=== PATIENT | female | born 1930 | race Caucasian/White ===

== ENCOUNTER → 2016-10-03 | Outpatient (CLI) | payer MEDICARE ==
[2016-10-03 10:07] LABS: HEMATOCRIT 39.7 % (35.0-46.0); MEAN CELL VOLUME 89.9 FL (80.0-100.0); MEAN CORPUSCULAR HGB CONC 33.3 % (32.0-36.0); PLATELET COUNT 243 TH/MM3 (150-450); RED BLOOD COUNT 4.42 MIL/MM3 (4.00-5.30); RED CELL DISTRIBUTION WIDTH 13.8 % (11.6-17.2); REVIEW FLAG FINAL; WHITE BLOOD COUNT 4.8 TH/MM3 (4.0-11.0)
[2016-10-03 10:14] LABS: ALT (GPT) 15 U/L (10-53); ANION GAP 4 MEQ/L (5-15); AST (GOT) 14 U/L (15-37); BICARBONATE 30.9 MEQ/L (21.0-32.0); BLOOD UREA NITROGEN 20 MG/DL (7-18); CHLORIDE 107 MEQ/L (98-107); GLOMERULAR FILTRATION RATE 59 ML/MIN (>89); GLUCOSE,FASTING 116 MG/DL (74-99); POTASSIUM 4.8 MEQ/L (3.5-5.1); SODIUM (NA) 142 MEQ/L (136-145)
[2016-10-03 10:23] LABS: ALKALINE PHOSPHATASE 53 U/L (45-117); FREE T4 1.08 NG/DL (0.76-1.46); HDL CHOLESTEROL 62.1 MG/DL (40.0-60.0); LDL CHOLESTEROL 92 MG/DL (0-99); LDL CHOLESTEROL DIRECT 97 MG/DL (0-99); TOTAL BILIRUBIN ADULT 0.7 MG/DL (0.2-1.0)
[2016-10-03 16:10] LABS: HEMOGLOBIN A1a 1.1 %; HEMOGLOBIN A1b 1.9 %; HEMOGLOBIN Ao 84.1 %; HEMOGLOBIN P3 4.1 %
== END ==
LOC: PLAB 07:06
PROVIDERS: ATTEND Family Medicine
DX: E11.9 Type 2 diabetes mellitus without complications (principal); E78.2 Mixed hyperlipidemia; I10 Essential (primary) hypertension; E03.8 Other specified hypothyroidism
CPT/HCPCS: 36415; 80053; 80061; 83036; 83721; 84439; 84443; 85027

== ENCOUNTER → 2016-12-25 | Outpatient (CLI) | payer MEDICARE ==
[~2016-12-25] MED LIST: FAMOTIDINE 20 MG/2 ML VIAL ONE
[2016-12-25 09:39] LABS: HEMATOCRIT 40.3 % (35.0-46.0); MEAN CELL VOLUME 90.1 FL (80.0-100.0); MEAN CORPUSCULAR HEMOGLOBIN 30.4 PG (27.0-34.0); MEAN CORPUSCULAR HGB CONC 33.7 % (32.0-36.0); PLATELET COUNT 255 TH/MM3 (150-450); RED BLOOD COUNT 4.47 MIL/MM3 (4.00-5.30); RED CELL DISTRIBUTION WIDTH 13.6 % (11.6-17.2); REVIEW FLAG FINAL; WHITE BLOOD COUNT 4.6 TH/MM3 (4.0-11.0)
[2016-12-25 10:09] LABS: ALKALINE PHOSPHATASE 55 U/L (45-117); ALT (GPT) 16 U/L (10-53); ANION GAP 3 MEQ/L (5-15); AST (GOT) 11 U/L (15-37); BICARBONATE 34.4 MEQ/L (21.0-32.0); BLOOD UREA NITROGEN 17 MG/DL (7-18); CHLORIDE 104 MEQ/L (98-107); FREE T4 1.16 NG/DL (0.76-1.46); GLOMERULAR FILTRATION RATE 58 ML/MIN (>89); GLUCOSE,FASTING 104 MG/DL (74-99); HDL CHOLESTEROL 58.6 MG/DL (40.0-60.0); LDL CHOLESTEROL 91 MG/DL (0-99); LDL CHOLESTEROL DIRECT 97 MG/DL (0-99); POTASSIUM 4.7 MEQ/L (3.5-5.1); SODIUM (NA) 141 MEQ/L (136-145); TOTAL BILIRUBIN ADULT 0.8 MG/DL (0.2-1.0)
[2016-12-25 10:53] LABS: HEMOGLOBIN A1b 1.9 %; HEMOGLOBIN Ao 83.9 %; HEMOGLOBIN LA1C 2.1 %; HEMOGLOBIN P3 5.5 %
== END ==
LOC: PLAB 07:09
PROVIDERS: ATTEND Family Medicine
DX: E11.9 Type 2 diabetes mellitus without complications (principal); E78.2 Mixed hyperlipidemia; I10 Essential (primary) hypertension; E03.8 Other specified hypothyroidism
CPT/HCPCS: 36415; 80053; 80061; 83036; 83721; 84439; 84443; 85027

== ENCOUNTER → 2017-03-27 | Outpatient (CLI) | payer MEDICARE ==
[2017-03-27 12:24] LABS: HEMATOCRIT 41.1 % (35.0-46.0); MEAN CELL VOLUME 90.4 FL (80.0-100.0); MEAN CORPUSCULAR HEMOGLOBIN 30.4 PG (27.0-34.0); MEAN CORPUSCULAR HGB CONC 33.6 % (32.0-36.0); PLATELET COUNT 248 TH/MM3 (150-450); RED BLOOD COUNT 4.55 MIL/MM3 (4.00-5.30); RED CELL DISTRIBUTION WIDTH 13.5 % (11.6-17.2); REVIEW FLAG FINAL
[2017-03-27 12:49] LABS: MICRO ALBUMIN RANDOM URINE RAW 24.8 MG/L (0.0-30.0)
[2017-03-27 13:03] LABS: AST (GOT) 11 U/L (15-37); BICARBONATE 30.4 MEQ/L (21.0-32.0); BLOOD UREA NITROGEN 17 MG/DL (7-18); GLOMERULAR FILTRATION RATE 58 ML/MIN (>89); GLUCOSE,FASTING 104 MG/DL (74-99)
[2017-03-27 13:38] LABS: ALKALINE PHOSPHATASE 51 U/L (45-117); ALT (GPT) 11 U/L (10-53); ANION GAP 6 MEQ/L (5-15); CHLORIDE 106 MEQ/L (98-107); FREE T4 1.27 NG/DL (0.76-1.46); HDL CHOLESTEROL 56.8 MG/DL (40.0-60.0); LDL CHOLESTEROL 90 MG/DL (0-99); LDL CHOLESTEROL DIRECT 93 MG/DL (0-99); POTASSIUM 3.9 MEQ/L (3.5-5.1); SODIUM (NA) 142 MEQ/L (136-145); TOTAL BILIRUBIN ADULT 0.9 MG/DL (0.2-1.0)
[2017-03-27 16:43] LABS: HEMOGLOBIN A1a 1.1 %; HEMOGLOBIN Ao 83.7 %; HEMOGLOBIN P3 4.2 %
== END ==
LOC: PLAB 08:07
PROVIDERS: ATTEND Family Medicine
DX: I10 Essential (primary) hypertension (principal); E11.9 Type 2 diabetes mellitus without complications; E78.2 Mixed hyperlipidemia; E03.8 Other specified hypothyroidism
CPT/HCPCS: 36415; 80053; 80061; 82043; 83036; 83721; 84439; 84443; 85027

== ENCOUNTER 2017-06-29 08:45 | Emergency (ER) | payer MEDICARE ==
[~2017-06-29] VITALS: Ht 175.3 cm; Wt 86.0 kg
[2017-06-29 09:00] VITALS: BP 183/82; PULSE 69; RESP 16; TEMP 97.8; O2SAT 97
[2017-06-29] MEDS ORDERED: METO50TA PO (09:04)
[2017-06-29] MEDS ORDERED: ESTR0.5T PO (09:04)
[2017-06-29] MEDS ORDERED: HYDR12.56 PO (09:04)
[2017-06-29] MEDS ORDERED: LEVO125T4 PO (09:04)
[2017-06-29] MEDS ORDERED: ROSU1TAB4 PO (09:04)
--- NOTE | 2017-06-29 09:23 | PD ---
HPI Chief Complaint: Cardiac Complaint Time Seen by Provider: 09:07 Travel History International Travel<30 days: No Contact w/Intl Traveler<30days: No Traveled to known affect area: No History of Present Illness HPI This patient reports that around midnight she woke up and had a sensation of fluttering in her chest. She did not have presyncopal symptoms. She walked to the bathroom and came back and went to bed. This morning she had another spell of fluttering. Resolved in a few minutes. She feels fine now. Symptoms at this time are mild. Were moderate during the night. He did not have any chest pain or pressure or tightness or heaviness. She's had this in the past but not any time recent. No history of cardiac arrhythmia or any cardiac problems definitively diagnosed. No alleviating factors. No exacerbating factors. PFSH Past Medical History Diabetes: Yes (NO NEDS) Patient Takes Glucophage: No Hypertension: Yes Thyroid Disease: Yes Influenza Vaccination: Yes ?: Not Past Surgical History Appendectomy: Yes Hysterectomy: Yes Social History Alcohol Use: Yes (OCCAS) Tobacco Use: No Substance Use: No Allergies-Medications (Allergen,Severity, Reaction): Coded Allergies: erythromycin base (Verified Allergy, Mild, Nausea/Vomiting, 06/29/17) Reported Meds & Prescriptions Reported Meds & Active Scripts Active Reported Estradiol 0.5 Mg Tab 0.5 Mg PO EVERY OTHER DAY Rosuvastatin (Rosuvastatin Calcium) 5 Mg Tab 5 Mg PO - Metoprolol Tartrate 50 Mg Tab 50 Mg PO BID Levothyroxine (Levothyroxine Sodium) 125 Mcg Tab 125 Mcg PO DAILY Hydrochlorothiazide 12.5 Mg Tab 12.5 Mg PO DAILY Review of Systems General / Constitutional: No: Fever Eyes: No: Visual changes HENT: No: Headaches Cardiovascular: Positive: Palpitations, No: Chest Pain or Discomfort Respiratory: No: Shortness of Breath Gastrointestinal: No: Abdominal Pain Genitourinary: No: Dysuria Musculoskeletal: No: Pain Skin: No Rash Neurologic: No: Weakness Psychiatric: No: Depression Endocrine: No: Polydipsia Hematologic/Lymphatic: No: Easy Bruising Physical Exam Narrative GENERAL: Well-nourished, well-developed patient in no apparent distress. SKIN: Focused skin assessment reveals no rash and nodules. Skin is Warm and dry. HEAD: Atraumatic. Normocephalic. EYES: Pupils equal and round. No scleral icterus. No injection or drainage. ENT: No nasal bleeding or discharge. Mucous membranes pink and moist. NECK: Trachea midline. No JVD. CARDIOVASCULAR: Regular rate and rhythm. No murmur appreciated. RESPIRATORY: No accessory muscle use. Clear to auscultation. Breath sounds equal bilaterally. GASTROINTESTINAL: Abdomen soft, non-tender, nondistended. Hepatic and splenic margins not palpable. MUSCULOSKELETAL: No obvious deformities. No clubbing. No cyanosis. No edema. NEUROLOGICAL: Awake and alert. No obvious cranial nerve deficits. Motor grossly within normal limits. Normal speech. PSYCHIATRIC: Appropriate mood and affect; insight and judgment normal. Data Data Last Documented VS Vital Signs Date Time Temp Pulse Resp B/P (MAP) Pulse Ox O2 Delivery O2 Flow Rate FiO2 06/29/17 11:16 51 18 131/66 (87) 99 Room Air 06/29/17 09:00 97.8 Orders Orders Iv Access Insert/Monitor (06/29/17 09:16) Complete Blood Count With Diff (06/29/17 09:16) Basic Metabolic Panel (Bmp) (06/29/17 09:16) Electrocardiogram (06/29/17 ) Medical Assistant Cardiology / Telemetry [email or web address] (06/29/17 09:16) Labs Laboratory Tests Test 06/29/17 09:15 White Blood Count 6.9 TH/MM3 Red Blood Count 4.35 MIL/MM3 Hemoglobin 13.3 GM/DL Hematocrit 38.7 % Mean Corpuscular Volume 89.0 FL Mean Corpuscular Hemoglobin 30.5 PG Mean Corpuscular Hemoglobin Concent 34.3 % Red Cell Distribution Width 12.6 % Platelet Count 288 TH/MM3 Mean Platelet Volume 8.3 FL Neutrophils (%) (Auto) 76.4 % Lymphocytes (%) (Auto) 13.2 % Monocytes (%) (Auto) 7.9 % Eosinophils (%) (Auto) 1.5 % Basophils (%) (Auto) 1.0 % Neutrophils # (Auto) 5.3 TH/MM3 Lymphocytes # (Auto) 0.9 TH/MM3 Monocytes # (Auto) 0.5 TH/MM3 Eosinophils # (Auto) 0.1 TH/MM3 Basophils # (Auto) 0.1 TH/MM3 CBC Comment DIFF FINAL Differential Comment Blood Urea Nitrogen 18 MG/DL Creatinine 0.92 MG/DL Random Glucose 128 MG/DL Calcium Level 8.9 MG/DL Sodium Level 138 MEQ/L Potassium Level 3.9 MEQ/L Chloride Level 105 MEQ/L Carbon Dioxide Level 25.9 MEQ/L Anion Gap 7 MEQ/L Estimat Glomerular Filtration Rate 58 ML/MIN MDM Medical Decision Making Medical Screen Exam Complete: Yes Emergency Medical Condition: Yes Medical Record Reviewed: Yes Differential Diagnosis PVCs, A. fib, SVT, anxiety Narrative Course I have reviewed the patient's electronic medical record. I reviewed her last lab draws here. She's not been in ER patient in the last year. IV placed I reviewed her EKG which shows a sinus arrhythmia at around 60 Extended cardiac monitoring reveals sinus arrhythmia CBC is normal Metabolic profile is normal Patient remains asymptomatic and sinus arrhythmia. Stable for outpatient follow -up. She will discuss ALT are monitoring with her primary physician Diagnosis Primary Impression: Palpitations Additional Impression: Sinus arrhythmia seen on electrocardiogram Additional Instructions: The patient was advised to follow up with their physician and return if they worsen. Med/Other Pt SpecificInfo: Other Disposition: 01 DISCHARGE HOME Condition: Stable Teo Xavier MD Jun 29, 2017 09:23
[2017-06-29 09:35] LABS: AUTOMATED NEUTROPHIL # 5.3 TH/MM3 (1.8-7.7); BASOPHIL # 0.1 TH/MM3 (0-0.2); EOSINOPHIL # 0.1 TH/MM3 (0-0.4); EOSINOPHIL % 1.5 % (0.0-4.0); HEMATOCRIT 38.7 % (35.0-46.0); HEMO FLAGS DIFF FINAL; LYMPH % 13.2 % (9.0-44.0); LYMPHOCYTE # 0.9 TH/MM3 (1.0-4.8); MEAN CORPUSCULAR HEMOGLOBIN 30.5 PG (27.0-34.0); MEAN CORPUSCULAR HGB CONC 34.3 % (32.0-36.0); MONO % 7.9 % (0.0-8.0); NEUT % 76.4 % (16.0-70.0); PLATELET COUNT 288 TH/MM3 (150-450); RED BLOOD COUNT 4.35 MIL/MM3 (4.00-5.30); RED CELL DISTRIBUTION WIDTH 12.6 % (11.6-17.2); WHITE BLOOD COUNT 6.9 TH/MM3 (4.0-11.0)
[2017-06-29 09:55] LABS: BICARBONATE 25.9 MEQ/L (21.0-32.0); POTASSIUM 3.9 MEQ/L (3.5-5.1)
[2017-06-29 10:09] VITALS: BP 164/73; PULSE 58; RESP 16; O2SAT 97
[2017-06-29 11:16] VITALS: BP 131/66; PULSE 51; RESP 18; O2SAT 99
--- NOTE | 2017-06-29 17:59 | EKG ---
Date Performed: 06/29/2017 Time Performed: 09:02:45 PTAGE: 86 years EKG: SINUS BRADYCARDIA WITH SINUS ARRHYTHMIA WITH FIRST DEGREE AV BLOCK MARKED LEFT AXIS DEVIATI ON LEFT VENTRICULAR HYPERTROPHY AND ST-T CHANGE POSSIBLE SEPTAL MYOCARDIAL INFARCTION POSSIBLE LATERA L MYOCARDIAL INFARCTION ABNORMAL ECG NO PREVIOUS TRACING DOCTOR: Chikis Malcolm Interpretating Date/Time 06/29/2017 17:57:31
== END 2017-06-29 11:27 | disposition home or self-care (01) ==
LOC: PHED 08:45
DX: R00.2 Palpitations (principal); I49.9 Cardiac arrhythmia, unspecified; R94.31 Abnormal electrocardiogram [ECG] [EKG]; E11.9 Type 2 diabetes mellitus without complications; I10 Essential (primary) hypertension; E07.9 Disorder of thyroid, unspecified
CPT/HCPCS: 80048; 85025; 93005; 99285

== ENCOUNTER → 2017-07-02 | Outpatient (CLI) | payer MEDICARE ==
[~2017-07-02] MED LIST changes: +ESTR0.5T PO; -FAMOTIDINE 20 MG/2 ML VIAL ONE; +HYDR12.56 PO; +LEVO125T4 PO; +METO50TA PO; +ROSU1TAB4 PO
[2017-07-02 09:34] LABS: HEMATOCRIT 38.8 % (35.0-46.0); MEAN CELL VOLUME 91.3 FL (80.0-100.0); MEAN CORPUSCULAR HEMOGLOBIN 30.4 PG (27.0-34.0); MEAN CORPUSCULAR HGB CONC 33.3 % (32.0-36.0); PLATELET COUNT 254 TH/MM3 (150-450); RED BLOOD COUNT 4.25 MIL/MM3 (4.00-5.30); RED CELL DISTRIBUTION WIDTH 13.3 % (11.6-17.2); REVIEW FLAG FINAL; WHITE BLOOD COUNT 4.2 TH/MM3 (4.0-11.0)
[2017-07-02 10:06] LABS: ANION GAP 6 MEQ/L (5-15); AST (GOT) 14 U/L (15-37); BICARBONATE 29.1 MEQ/L (21.0-32.0); BLOOD UREA NITROGEN 18 MG/DL (7-18); CHLORIDE 103 MEQ/L (98-107); GLOMERULAR FILTRATION RATE 58 ML/MIN (>89); GLUCOSE,FASTING 111 MG/DL (74-99); POTASSIUM 3.8 MEQ/L (3.5-5.1); SODIUM (NA) 138 MEQ/L (136-145)
[2017-07-02 10:07] LABS: ALT (GPT) 16 U/L (10-53)
[2017-07-02 11:55] LABS: ALKALINE PHOSPHATASE 53 U/L (45-117); TOTAL BILIRUBIN ADULT 0.8 MG/DL (0.2-1.0)
[2017-07-02 11:56] LABS: FREE T4 1.42 NG/DL (0.76-1.46); HDL CHOLESTEROL 62.3 MG/DL (40.0-60.0); LDL CHOLESTEROL 82 MG/DL (0-99); LDL CHOLESTEROL DIRECT 96 MG/DL (0-99)
== END ==
LOC: PLAB 07:11
PROVIDERS: ATTEND Family Medicine
DX: I12.9 Hypertensive chronic kidney disease with stage 1 through stage 4 chronic kidney disease, or unspecified chronic kidney disease (principal); N18.3 Chronic kidney disease, stage 3 (moderate); E11.22 Type 2 diabetes mellitus with diabetic chronic kidney disease; E78.2 Mixed hyperlipidemia; E03.8 Other specified hypothyroidism
CPT/HCPCS: 36415; 80053; 80061; 82607; 83721; 84439; 84443; 85027

== ENCOUNTER → 2017-07-19 | Outpatient (CLI) | payer MEDICARE ==
[2017-07-19 16:31] LABS: HEMOGLOBIN A1a 1.4 %; HEMOGLOBIN A1b 0.9 %; HEMOGLOBIN Ao 84.4 %; HEMOGLOBIN F 0.9 %; HEMOGLOBIN P3 3.9 %
== END ==
LOC: PLAB 07:17
PROVIDERS: ATTEND Family Medicine
DX: E11.9 Type 2 diabetes mellitus without complications (principal)
CPT/HCPCS: 36415; 83036

== ENCOUNTER → 2017-10-08 | Outpatient (CLI) | payer MEDICARE ==
[2017-10-08 09:24] LABS: HEMOGLOBIN 13.3 GM/DL (11.6-15.3); MEAN CELL VOLUME 89.5 FL (80.0-100.0); MEAN CORPUSCULAR HEMOGLOBIN 29.8 PG (27.0-34.0); MEAN CORPUSCULAR HGB CONC 33.2 % (32.0-36.0); MEAN PLATELET VOLUME 7.9 FL (7.0-11.0); PLATELET COUNT 263 TH/MM3 (150-450); RED BLOOD COUNT 4.47 MIL/MM3 (4.00-5.30); RED CELL DISTRIBUTION WIDTH 13.6 % (11.6-17.2); WHITE BLOOD COUNT 5.2 TH/MM3 (4.0-11.0)
[2017-10-08 09:54] LABS: ALBUMIN 3.4 GM/DL (3.4-5.0); AST (GOT) 12 U/L (15-37); BICARBONATE 30.6 MEQ/L (21.0-32.0); BLOOD UREA NITROGEN 18 MG/DL (7-18); CALCIUM 8.9 MG/DL (8.5-10.1); CHLORIDE 105 MEQ/L (98-107); CREATININE 0.87 MG/DL (0.50-1.00); GLOMERULAR FILTRATION RATE 61 ML/MIN (>89); GLUCOSE,FASTING 107 MG/DL (74-99); SODIUM (NA) 140 MEQ/L (136-145)
[2017-10-08 09:55] LABS: CHOLESTEROL 174 MG/DL (120-200); TRIGLYCERIDES 119 MG/DL (42-150)
[2017-10-08 10:05] LABS: ALKALINE PHOSPHATASE 54 U/L (45-117); ALT (GPT) 13 U/L (10-53); CHOLESTEROL/ HDL RATIO 2.92 RATIO; FREE T4 1.17 NG/DL (0.76-1.46); HDL CHOLESTEROL 59.4 MG/DL (40.0-60.0); LDL CHOLESTEROL 91 MG/DL (0-99); LDL CHOLESTEROL DIRECT 102 MG/DL (0-99); TOTAL BILIRUBIN ADULT 0.8 MG/DL (0.2-1.0); TOTAL PROTEIN 7.3 GM/DL (6.4-8.2)
[2017-10-08 17:08] LABS: HEMOGLOBIN A1C 6.7 % (4.3-6.0)
== END ==
LOC: PLAB 07:07
PROVIDERS: ATTEND Family Medicine
DX: E11.9 Type 2 diabetes mellitus without complications (principal); E78.2 Mixed hyperlipidemia; E03.8 Other specified hypothyroidism; I10 Essential (primary) hypertension
CPT/HCPCS: 36415; 80053; 80061; 83036; 83721; 84439; 84443; 85027

== ENCOUNTER → 2018-01-16 | Outpatient (CLI) | payer MEDICARE ==
[2018-01-16 10:13] LABS: HEMATOCRIT 38.8 % (35.0-46.0); HEMOGLOBIN 13.2 GM/DL (11.6-15.3); MEAN CELL VOLUME 89.9 FL (80.0-100.0); MEAN CORPUSCULAR HEMOGLOBIN 30.6 PG (27.0-34.0); MEAN PLATELET VOLUME 8.1 FL (7.0-11.0); PLATELET COUNT 285 TH/MM3 (150-450); RED BLOOD COUNT 4.32 MIL/MM3 (4.00-5.30); WHITE BLOOD COUNT 5.5 TH/MM3 (4.0-11.0)
[2018-01-16 10:21] LABS: ALBUMIN 3.5 GM/DL (3.4-5.0); AST (GOT) 15 U/L (15-37); BICARBONATE 31.3 MEQ/L (21.0-32.0); BLOOD UREA NITROGEN 19 MG/DL (7-18); CHLORIDE 105 MEQ/L (98-107); CREATININE 0.88 MG/DL (0.50-1.00); GLOMERULAR FILTRATION RATE 61 ML/MIN (>89); GLUCOSE,FASTING 114 MG/DL (74-99); SODIUM (NA) 142 MEQ/L (136-145)
[2018-01-16 10:23] LABS: CHOLESTEROL 163 MG/DL (120-200)
[2018-01-16 10:33] LABS: ALKALINE PHOSPHATASE 56 U/L (45-117); ALT (GPT) 17 U/L (10-53); CHOLESTEROL/ HDL RATIO 2.75 RATIO; FREE T4 1.09 NG/DL (0.76-1.46); HDL CHOLESTEROL 59.2 MG/DL (40.0-60.0); LDL CHOLESTEROL 82 MG/DL (0-99); LDL CHOLESTEROL DIRECT 93 MG/DL (0-99); TOTAL BILIRUBIN ADULT 0.7 MG/DL (0.2-1.0); TOTAL PROTEIN 7.2 GM/DL (6.4-8.2); TRIGLYCERIDES 109 MG/DL (42-150)
[2018-01-16 16:41] LABS: HEMOGLOBIN A1C 6.3 % (4.3-6.0)
== END ==
LOC: PLAB 07:19
PROVIDERS: ATTEND Family Medicine
DX: E03.8 Other specified hypothyroidism (principal); E11.9 Type 2 diabetes mellitus without complications; E78.5 Hyperlipidemia, unspecified; I10 Essential (primary) hypertension
CPT/HCPCS: 36415; 80053; 80061; 83036; 83721; 84439; 84443; 85027